=== PATIENT | female | born 1970 | race Caucasian/White ===

== ENCOUNTER 2022-02-11 12:30 | Emergency (ER) | payer OTHER ==
[~2022-02-11] VITALS: Ht 154.9 cm; Wt 73.5 kg
[2022-02-11] MEDS ORDERED: CIPRO500 MG PO (17:31)
[2022-02-11] MEDS ORDERED: PRILOSEC OTC20 MG PO (17:31)
[2022-02-11] MEDS ORDERED: LEVSIN/SL0.125 MG SL (17:31)
[2022-02-11] MEDS ORDERED: METRONIDAZOLE500 MG PO (17:31)
== END 2022-02-11 17:49 | disposition home or self-care (01) ==
LOC: ER 12:30
DX: K52.9 Noninfective gastroenteritis and colitis, unspecified (principal)